=== PATIENT | female | born 1980 ===

== ENCOUNTER 2021-08-30 09:55 | Emergency (ER) | payer OTHER ==
[2021-08-30] MEDS ORDERED: Ketorolac Tromethamine 30 MG/ML VIAL ONE ×2 (11:05→11:25)
== END 2021-08-30 12:31 | disposition home or self-care (01) ==
LOC: ERS 09:55
DX: S16.1XXA Strain of muscle, fascia and tendon at neck level, initial encounter (principal); R51.9 Headache, unspecified; M54.6 Pain in thoracic spine; J45.909 Unspecified asthma, uncomplicated; V43.52XA Car driver injured in collision with other type car in traffic accident, initial encounter
CPT/HCPCS: 70450; 72125; 72128; 96372; J1885